=== PATIENT | female | born 1950 | race African-American/Black ===

== ENCOUNTER 2019-01-10 09:12 | Emergency (ER) | payer MEDICARE, OTHER ==
[2019-01-10] MEDS: HYDROCODONE/APAP (10/325) TAB PO (10:02)
[2019-01-10 10:52] LABS: ADD MAN DIFF? NO
[2019-01-10 10:55] LABS: BASOPHILS % 0.3 % (0.0-2.0); EOSINOPHILS # 0.1 10^3/ul (0.0-0.5); EOSINOPHILS % 0.6 % (0.0-7.0); HEMATOCRIT 30.7 % (37.0-47.0); HEMOGLOBIN 9.7 g/dl (12.0-16.0); LYMPHOCYTES # 0.8 10^3/ul (0.8-2.9); MEAN CORPUSCULAR HGB CONC 31.6 g/dl (32.0-37.0); MEAN CORPUSCULAR VOLUME 82.3 fl (82.0-101.0); MEAN PLATELET VOLUME 8.8 fl (7.4-10.4); MONOCYTE # 0.8 10^3/ul (0.3-0.9); MONOCYTES % 7.7 % (0.0-11.0); NEUTROPHIL # 8.1 10^3/ul (1.6-7.5); NEUTROPHILS % 81.8 % (39.0-77.0); PLATELET COUNT 212 10^3/UL (140-415); RED BLOOD COUNT 3.73 10^6/ul (4.20-5.40); RED CELL DISTRIBUTION WIDTH 16.7 % (11.5-14.5)
[2019-01-10 10:55] LABS: WHITE BLOOD COUNT 9.9 10^3/ul (4.8-10.8)
[2019-01-10 11:15] LABS: INR 1.11; PROTIME 14.4 Sec (11.9-14.9); PT RATIO 1.1
[2019-01-10 11:16] LABS: ALANINE AMINOTRANSFERASE 29 IU/L (13-69); ALBUMIN 3.6 g/dl (3.3-4.9); ALBUMIN/GLOBULIN RATIO 0.87; ALKALINE PHOSPHATASE 128 IU/L (42-121); ANION GAP 9 (5-13); ASPARTATE AMINO TRANSFERASE 26 IU/L (15-46); BILIRUBIN,INDIRECT 0.2 mg/dl (0-1.1); BILIRUBIN,TOTAL 0.2 mg/dl (0.2-1.3); BLOOD UREA NITROGEN 9 mg/dl (7-20); CALCIUM 9.6 mg/dl (8.4-10.2); CARBON DIOXIDE 29 mmol/L (21-31); CHLORIDE 94 mmol/L (97-110); CREATININE 0.66 mg/dl (0.44-1.00); Estimated GFR > 60 mL/min (>60); GLUCOSE 108 mg/dl (70-220); LIPASE 27 U/L (23-300); POTASSIUM 4.1 mmol/L (3.5-5.1); SODIUM 132 mmol/L (135-144); TOTAL PROTEIN 7.7 g/dl (6.1-8.1)
[2019-01-10 11:58] LABS: URINE BLOOD (Dip) POC Negative (NEGATIVE); URINE GLUCOSE (Dip) POC Negative (NEGATIVE); URINE KETONES (Dip) POC Negative (NEGATIVE); URINE LEUKOCYTE EST (Dip) POC Trace (NEGATIVE); URINE NITRITE (Dip) POC Negative (NEGATIVE); URINE TOTAL PROTEIN POC 1+ (NEGATIVE)
[2019-01-10 11:58] LABS: URINE PH (Dip) POC 8.5 (5.0-8.5)
== END 2019-01-10 12:21 | disposition home or self-care (01) ==
LOC: E/R 09:12
DX: M54.5 Low back pain (principal); I10 Essential (primary) hypertension; R40.2142 Coma scale, eyes open, spontaneous, at arrival to emergency department; R40.2362 Coma scale, best motor response, obeys commands, at arrival to emergency department; R40.2252 Coma scale, best verbal response, oriented, at arrival to emergency department; R10.9 Unspecified abdominal pain
CPT/HCPCS: 74176; 80053; 81003; 83690; 85025; 85610; 93005; 99285-25

== ENCOUNTER 2019-05-01 18:34 | Inpatient (IN) | payer MEDICARE, OTHER ==
[2019-05-01 19:43] LABS: ADD MAN DIFF? NO
[2019-05-01 19:46] LABS: WHITE BLOOD COUNT 12.6 10^3/ul (4.8-10.8)
[2019-05-01 19:46] LABS: BASOPHILS % 0.3 % (0.0-2.0); EOSINOPHILS # 0.1 10^3/ul (0.0-0.5); HEMATOCRIT 43.4 % (37.0-47.0); HEMOGLOBIN 14.2 g/dl (12.0-16.0); LYMPHOCYTES # 2.3 10^3/ul (0.8-2.9); LYMPHOCYTES % 17.8 % (15.0-51.0); MEAN CORPUSCULAR HEMOGLOBIN 28.2 pg (29.0-33.0); MEAN CORPUSCULAR HGB CONC 32.7 g/dl (32.0-37.0); MEAN CORPUSCULAR VOLUME 86.3 fl (82.0-101.0); MEAN PLATELET VOLUME 9.4 fl (7.4-10.4); MONOCYTE # 0.8 10^3/ul (0.3-0.9); MONOCYTES % 6.5 % (0.0-11.0); NEUTROPHIL # 9.3 10^3/ul (1.6-7.5); NEUTROPHILS % 74.1 % (39.0-77.0); PLATELET COUNT 218 10^3/UL (140-415); RED BLOOD COUNT 5.03 10^6/ul (4.20-5.40); RED CELL DISTRIBUTION WIDTH 15.4 % (11.5-14.5)
[2019-05-01] MEDS: SOD CHLORIDE 0.9% 1,000 ML IV (19:46)
[2019-05-01] MEDS: LIDOCAINE/MYLANTA 40 ML BTL PO (19:46)
[2019-05-01] MEDS: ONDANSETRON 4 MG INJ IV (19:47)
[2019-05-01] MEDS: BELLADONNA/PHENOBARBITAL TAB PO (19:47)
[2019-05-01] MEDS: KETOROLAC 15 MG INJ IV (19:47)
[2019-05-01 20:05] LABS: ALANINE AMINOTRANSFERASE 25 IU/L (13-69); ALBUMIN 4.6 g/dl (3.3-4.9); ALBUMIN/GLOBULIN RATIO 0.95; ALKALINE PHOSPHATASE 112 IU/L (42-121); ANION GAP 11 (5-13); ASPARTATE AMINO TRANSFERASE 24 IU/L (15-46); BILIRUBIN,INDIRECT 0.4 mg/dl (0-1.1); BILIRUBIN,TOTAL 0.4 mg/dl (0.2-1.3); BLOOD UREA NITROGEN 13 mg/dl (7-20); CALCIUM 9.8 mg/dl (8.4-10.2); CARBON DIOXIDE 28 mmol/L (21-31); CHLORIDE 101 mmol/L (97-110); CREATININE 1.01 mg/dl (0.44-1.00); Estimated GFR > 60 mL/min (>60); GLUCOSE 101 mg/dl (70-220); LIPASE 129 U/L (23-300); POTASSIUM 3.7 mmol/L (3.5-5.1); SODIUM 140 mmol/L (135-144); TOTAL PROTEIN 9.4 g/dl (6.1-8.1)
[2019-05-01] MEDS: HYDROCODONE/APAP (5/325) TAB PO (21:31)
[2019-05-01 23:56] LABS: PROTIME 12.3 Sec (11.9-14.9)
[2019-05-01 23:57] LABS: PARTIAL THROMBOPLASTIN TIME 32.6 Sec (23.0-35.0)
[2019-05-02] MEDS ORDERED: PIPER-TAZO 3.375 GM IV (PMX) 100 ML IVPB
[2019-05-02] MEDS: HYDROmorphONE 1 MG/ML SYG IV ×5 (00:07→21:34)
[2019-05-02] MEDS: ONDANSETRON 4 MG INJ IV ×3 (00:07→13:38)
[2019-05-02] MEDS: LACTATED RINGER'S 1,000 ML IV (00:07)
[2019-05-02] MEDS: LEVOFLOXACIN 750MG/D5W (PMX) 150 ML IVPB (02:00)
[2019-05-02] MEDS: metroNIDAZOLE 500 MG/NS (PMX) 100 ML IVPB ×3 (02:36→21:36)
[2019-05-02] MEDS ORDERED: NACL 0.9% 3 ML SYG IV (04:00)
[2019-05-02] MEDS: DEXTROSE 5%-0.45% NACL 1,000 ML IV ×3 (04:47→23:47)
[2019-05-02 05:18] LABS: ADD MAN DIFF? NO
[2019-05-02 05:24] LABS: WHITE BLOOD COUNT 11.7 10^3/ul (4.8-10.8)
[2019-05-02 05:24] LABS: BASOPHILS % 0.3 % (0.0-2.0); EOSINOPHILS # 0.1 10^3/ul (0.0-0.5); EOSINOPHILS % 0.9 % (0.0-7.0); HEMATOCRIT 35.8 % (37.0-47.0); HEMOGLOBIN 11.9 g/dl (12.0-16.0); LYMPHOCYTES # 2.1 10^3/ul (0.8-2.9); LYMPHOCYTES % 17.6 % (15.0-51.0); MEAN CORPUSCULAR HEMOGLOBIN 28.8 pg (29.0-33.0); MEAN CORPUSCULAR HGB CONC 33.2 g/dl (32.0-37.0); MEAN CORPUSCULAR VOLUME 86.7 fl (82.0-101.0); MEAN PLATELET VOLUME 9.8 fl (7.4-10.4); MONOCYTE # 0.8 10^3/ul (0.3-0.9); MONOCYTES % 7.2 % (0.0-11.0); NEUTROPHIL # 8.6 10^3/ul (1.6-7.5); NEUTROPHILS % 73.5 % (39.0-77.0); PLATELET COUNT 170 10^3/UL (140-415); RED BLOOD COUNT 4.13 10^6/ul (4.20-5.40); RED CELL DISTRIBUTION WIDTH 15.2 % (11.5-14.5)
[2019-05-02] MEDS: HYDROmorphONE 0.5 MG/0.5 ML SYG IV ×2 (05:24→09:37)
[2019-05-02] MEDS ORDERED: PANTOPRAZOLE 40 MG INJ IV (06:00)
[2019-05-02 06:37] LABS: ALANINE AMINOTRANSFERASE 17 IU/L (13-69); ALBUMIN 3.6 g/dl (3.3-4.9); ALBUMIN/GLOBULIN RATIO 1.02; ALKALINE PHOSPHATASE 75 IU/L (42-121); ANION GAP 5 (5-13); ASPARTATE AMINO TRANSFERASE 16 IU/L (15-46); BILIRUBIN,INDIRECT 0.5 mg/dl (0-1.1); BILIRUBIN,TOTAL 0.5 mg/dl (0.2-1.3); BLOOD UREA NITROGEN 10 mg/dl (7-20); CARBON DIOXIDE 28 mmol/L (21-31); CHLORIDE 106 mmol/L (97-110); CREATININE 0.86 mg/dl (0.44-1.00); Estimated GFR > 60 mL/min (>60); GLUCOSE 99 mg/dl (70-220); MAGNESIUM 2.4 mg/dl (1.7-2.5); PHOSPHORUS 3.3 mg/dl (2.5-4.9); POTASSIUM 3.7 mmol/L (3.5-5.1); SODIUM 139 mmol/L (135-144); TOTAL PROTEIN 7.1 g/dl (6.1-8.1)
[2019-05-02] MEDS: FAMOTIDINE 20 MG INJ IV ×2 (08:52→20:42)
[2019-05-02] MEDS: CIPROFLOXACIN 400MG/D5W 200 ML IVPB ×2 (08:53→20:42)
[2019-05-02] MEDS: traMADol 50 MG TAB GTB (11:49)
[2019-05-02] MEDS ORDERED: BARIUM SULF 2% 450 ML BTL (BERRY SMOOTHIE) PO (12:00)
[2019-05-02] MEDS: BARIUM SULF 2% 450 ML BTL (BERRY SMOOTHIE) PO (14:15)
[2019-05-02] MEDS: IOHEXOL 300MG/ML 150 ML BTL (17:34)
[2019-05-02] MEDS: SOD CHLORIDE 0.9% 100 ML (17:34)
[2019-05-02] MEDS: METOPROLOL 50 MG TAB GTB (20:39)
[2019-05-02] MEDS: AMLODIPINE 2.5 MG TAB PO (22:02)
[2019-05-03] MEDS: ZOLPIDEM 5 MG TAB PO (01:38)
[2019-05-03] MEDS: HYDROmorphONE 1 MG/ML SYG IV ×4 (01:40→17:12)
[2019-05-03] MEDS: DEXTROSE 5%-0.45% NACL 1,000 ML IV (05:16)
[2019-05-03] MEDS: metroNIDAZOLE 500 MG/NS (PMX) 100 ML IVPB ×2 (05:33→13:12)
[2019-05-03 05:58] LABS: ADD MAN DIFF? NO
[2019-05-03 06:32] LABS: WHITE BLOOD COUNT 12.1 10^3/ul (4.8-10.8)
[2019-05-03 06:32] LABS: BASOPHILS % 0.2 % (0.0-2.0); EOSINOPHILS # 0.1 10^3/ul (0.0-0.5); EOSINOPHILS % 0.6 % (0.0-7.0); HEMOGLOBIN 12.4 g/dl (12.0-16.0); LYMPHOCYTES # 1.8 10^3/ul (0.8-2.9); LYMPHOCYTES % 14.9 % (15.0-51.0); MEAN CORPUSCULAR HEMOGLOBIN 28.1 pg (29.0-33.0); MEAN CORPUSCULAR HGB CONC 32.6 g/dl (32.0-37.0); MEAN PLATELET VOLUME 9.7 fl (7.4-10.4); MONOCYTES % 7.9 % (0.0-11.0); NEUTROPHIL # 9.2 10^3/ul (1.6-7.5); NEUTROPHILS % 75.9 % (39.0-77.0); PLATELET COUNT 179 10^3/UL (140-415); RED BLOOD COUNT 4.42 10^6/ul (4.20-5.40)
[2019-05-03 06:38] LABS: ANION GAP 7 (5-13); BLOOD UREA NITROGEN 5 mg/dl (7-20); CALCIUM 8.9 mg/dl (8.4-10.2); CARBON DIOXIDE 27 mmol/L (21-31); CHLORIDE 100 mmol/L (97-110); CREATININE 0.94 mg/dl (0.44-1.00); Estimated GFR > 60 mL/min (>60); GLUCOSE 104 mg/dl (70-220); MAGNESIUM 2.1 mg/dl (1.7-2.5); PHOSPHORUS 3.4 mg/dl (2.5-4.9); POTASSIUM 3.8 mmol/L (3.5-5.1); SODIUM 134 mmol/L (135-144)
[2019-05-03] MEDS: FAMOTIDINE 20 MG INJ IV (08:20)
[2019-05-03] MEDS: METOPROLOL 50 MG TAB GTB (08:21)
[2019-05-03] MEDS: CIPROFLOXACIN 400MG/D5W 200 ML IVPB (08:22)
[2019-05-03] MEDS: AMLODIPINE 2.5 MG TAB PO (08:23)
[2019-05-03] MEDS: ONDANSETRON 4 MG INJ IV (15:12)
== END 2019-05-03 17:54 | disposition home or self-care (01) | DRG 395 ==
LOC: 2NE 23:46 → E/R 18:34 → 2NE 05-02 03:46
DX: K52.1 Toxic gastroenteritis and colitis (principal); T62.8X1A Toxic effect of other specified noxious substances eaten as food, accidental (unintentional), initial encounter
CPT/HCPCS: 36415; 74176; 74177; 76705; 80048; 80053; 83690; 83735; 84100; 85025; 85610; 85730; 93005; 96374; 96375; 99285-25